=== PATIENT | male | born 1965 | race Caucasian/White ===

== ENCOUNTER 2024-03-01 08:01 | Day surgery (SDC) | payer BC, SELFPAY ==
--- NOTE | 2024-03-01 | PATH_ITS ---
[facility] Accession Number: [id number] No. of containers..01 Tissue . 01 Material submitted: . colon - SIGMOID COLON POLYP . 01 Diagnosis: SIGMOID COLON POLYP: Tubular adenoma(s). Hyperplastic polyp. [facility] 03/03/2024 1250 Local . 01 Electronically signed: . Jhon Arreguin MD, Pathologist NPI- [id number] . 01 Gross description: . Received in formalin with two patient identifiers and sigmoid colon polyp, are three youngblood soft tissue fragments, 0.3 to 0.5 cm in greatest dimension, submitted in A1. ([id number]) /MRV 03/03/2024 1250 Local . 01 Pathologist provided ICD-10: D12.5 . 01 CPT . 951376 Specimen Comment: A courtesy copy of this report has been sent to [phone] Performed at: [address] [id number] MD Jhon Arreguin MD Phone: [phone]
[2024-03-01 08:57] VITALS: BP 136/77; PULSE 74; RESP 16; TEMP 36.1; O2SAT 97
[2024-03-01] MEDS: LACTATED RINGERS 1,000 ML 42 ML IV (09:06)
--- NOTE | 2024-03-01 09:06 | PM.OP.COLON ---
Operative Date/Time/Diagnoses Date of procedure: 03/01/24 Pre-op diagnosis: See indication and findings Procedure & Clinicians Study performed: Colonoscopy Indications: History of polyps last colonoscopy over 5 years ago Surgeon: Evelin De Luna Procedure Notes Procedure in detail: After informed consent was obtained the patient was placed in left lateral decubitus position. The video colonoscope was introduced the rectum slowly advanced cecum. Preparation was good. On slow withdrawal mucosa was carefully examined. The scope was removed. The patient tolerated procedure well. Blood loss none Complications none Sedation mac Findings 1. To 8 mm semi sessile polyps in the sigmoid colon 1 was cold snared and removed completely in the other was removed with 2 bites of a Jumbo biopsy forceps. 2. Rare sigmoid diverticular orifices 3. Otherwise negative colonoscopy to cecum other than moderate hemorrhoids Will be in touch regarding biopsies. Patient will most likely need follow-up colonoscopy in 5 years
[2024-03-01 09:31] VITALS: BP 88/47; PULSE 81; RESP 15; TEMP 36.2; O2SAT 97
[2024-03-01 09:36] VITALS: BP 84/45; PULSE 83; RESP 10; O2SAT 91
[2024-03-01 09:44] VITALS: BP 95/60; PULSE 78; RESP 13; O2SAT 95
[2024-03-01 09:48] VITALS: BP 103/65; PULSE 79; RESP 10; TEMP 36.8; O2SAT 95
--- NOTE | 2024-03-24 12:03 | PM.HP.1 ---
History of Present Illness History of Present Illness Date Patient Seen: 03/01/24 Chief complaint: SDC Narrative: History of colon polyps PFSH Social History Smoking Status: Never smoker alcohol intake: never Meds Home Medications and Allergies Home Medications Medication Instructions Recorded Confirmed Type atorvastatin PO BID 12/27/20 06/14/21 History finasteride 1 mg tablet 1 mg PO DAILY 12/27/20 03/01/24 History lisinopril 20 mg tablet 20 mg PO DAILY 12/27/20 03/01/24 History metformin 1,000 mg tablet 1,000 mg PO BID 12/27/20 03/01/24 History tamsulosin PO BID 12/27/20 06/14/21 History ResMed AirSense 10 12/19/21 History Allergies Allergy/AdvReac Type Severity Reaction Status Date / Time No Known Drug Allergies Allergy Verified 03/01/24 08:55 Exam Vital Signs (past 8 hours): Oxygen Delivery Method Room Air Narrative Exam Narrative: Oropharynx free of lesions Chest clear to auscultation percussion Cardiac exam reveals no S3 or murmur Assessment & Plan Assessment & Plan narrative: History of colon polyps need for follow-up colonoscopy. Risks, benefits, alternatives have been explained. Time-Based Coding :: [TOTAL MINUTES] spent with patient and on the chart (including review of chart, obtaining history, exam, reviewing outside data, placing orders, documenting exam and treatment plan, and counseling patient) on [DATE].
== END 2024-03-01 10:15 | disposition home or self-care (01) ==
PROVIDERS: PCP Registered Nurse; Referring Provider Internal Medicine Gastroenterology; Visit Provider Internal Medicine Gastroenterology
PROC: 0DJD8ZZ Inspection of Lower Intestinal Tract, Via Natural or Artificial Opening Endoscopic (ICD-10-PCS; CPT 45378; principal; 2024-03-01 09:30)
DX: Z12.11 Encounter for screening for malignant neoplasm of colon (principal); Z86.0100 Personal history of colon polyps, unspecified; K57.30 Diverticulosis of large intestine without perforation or abscess without bleeding; D12.5 Benign neoplasm of sigmoid colon
CPT/HCPCS: 45385; 45380; 82962; J2704